=== PATIENT | male | born 1965 | race Hispanic/Latino ===

== ENCOUNTER 2019-02-28 10:24 | Day surgery (SDC) | payer MEDICARE, MEDICAID ==
[2019-02-25 08:27] VITALS: BMI 37.8
--- NOTE | 2019-02-28 19:45 | MRI ---
MRI LUMBAR SPINE WITHOUT AND WITHCONTRAST: Date: 02-28-19 History: Back pain with numbness in the left inguinal region extending into the left lower extremity, left lower extremity radiculopathy. Comparison: None. Technique: Multiplanar, multisequence MRI images were obtained of the lumbar spine with and without c ontrast. FINDINGS: On the basis of five lumbar type vertebral bodies, the conus medullaris terminates at the L1 level. The sagittal STIR imaging demonstrates no focal area of osseous marrow edema. There is anterolisthesis of L4 on L5 measuring approximately 4-5 mm. T12-L1: There is mild bilateral facet hypertrophy. No significant central canal stenosis or neural fo raminal stenosis. L1-2: Mild bilateral facet hypertrophy. Intervertebral disc height and signal intensity appears withi n normal limits with no significant central canal or neural foraminal stenosis. L2-3: Mild bilateral facet hypertrophy. There is a small left foraminal disc protrusion. There is no significant central canal or neural foraminal stenosis. L3-4: Mild bilateral facet hypertrophy. Intervertebral disc height and signal intensity appears withi n normal limits with no significant central canal or neural foraminal stenosis. L4-5: There is disc space narrowing, disc desiccation and degenerative endplate change with disc bulg e. There is prominent bilateral facet hypertrophy. There is severe bilateral neural foraminal stenosi s and there is moderate central canal stenosis. L5-S1: There is disc space narrowing, disc desiccation, and degenerative endplate change. There is no central canal stenosis. There is mild bilateral facet hypertrophy. There is moderate bilateral neura l foraminal stenosis, left greater than right. The visualized retroperitoneal structures appear grossly unremarkable. There is post-surgical architectural distortion of the subcutaneous adipose air posteriorly within th e lumbar spine, particularly at the L4-5 level. The patient appears status post laminectomy at L4-5/L 5-S1. The post contrast imaging demonstrates no abnormal enhancement involving the content of the thecal sa c. There is no abnormal enhancement involving the osseous structures or intervertebral discs. IMPRESSION: Post-operative and degenerative change of the lumbar spine as detailed above. Most significant findin gs are bilateral neural foraminal stenosis at L4-5 and L5-S1, as well as significant central canal st enosis at the L4-5 level. POS: GERI
== END 2019-02-28 15:15 | disposition home or self-care (01) ==
LOC: SDC/OP 10:24
PROVIDERS: ATTEND Neurological Surgery
DX: M48.061 Spinal stenosis, lumbar region without neurogenic claudication (principal); M48.07 Spinal stenosis, lumbosacral region; M54.16 Radiculopathy, lumbar region; M54.17 Radiculopathy, lumbosacral region; M89.38 Hypertrophy of bone, other site; Z79.84 Long term (current) use of oral hypoglycemic drugs; Z79.1 Long term (current) use of non-steroidal anti-inflammatories (NSAID); Z79.899 Other long term (current) drug therapy; Z88.5 Allergy status to narcotic agent; Z88.6 Allergy status to analgesic agent
CPT/HCPCS: 72158

== ENCOUNTER 2019-04-06 09:08 | Day surgery (SDC) | payer MEDICARE, MEDICAID ==
[2019-04-05 11:26] VITALS: BMI 38.7
--- NOTE | 2019-04-05 16:01 | HP ---
HISTORY OF PRESENT ILLNESS: Mr. Tamayo is a 53-year-old man, presenting for rather distressing complaint of severe left lower extremity pain that fits in the L5 pattern. This onset after a laminectomy was performed in [place] in 2008, which then became infected and had to be washed out. After washout, this pain started and has not . He reports numbness and dysesthesias as well as weakness, which has prompted him to start using a cane to prevent fall. He also reports classic carpal tunnel syndrome of the left hand, which has been present over the last year. An MRI from [place] reveals severe bilateral recess stenosis at L4-5 on the left that would fit his symptoms well. He has a prior history of dorsal column stimulator that was placed, but then also removed. PAST MEDICAL HISTORY: Significant for hyperlipidemia, anxiety, hypertension, asthma, and seasonal allergies. CURRENT MEDICATIONS: 1. Mirtazapine. 2. Metformin. 3. Meloxicam. 4. Lisinopril. 5. Fluticasone. 6. Duloxetine. 7. Cyclobenzaprine. 8. Buspirone. 9. Alprazolam. 10. Albuterol. 11. Serafina. 12. Pravastatin. 13. Pregabalin. 14. Propranolol. ALLERGIES: NO KNOWN DRUG ALLERGIES. PAST SURGICAL HISTORY: Unspecified other than lumbar back surgery x2. PHYSICAL EXAMINATION: GENERAL: The patient is alert and oriented x3. EXTREMITIES: Gait is profoundly antalgic. Lower extremity exam is limited in my ability to assess because of his degree of pain. He also has paresthesias and numbness to the left hand that would fit carpal tunnel quite well. ASSESSMENT: Left hand carpal tunnel syndrome and lumbar radiculopathy. PLAN: Dr. Mora met with the patient, reviewed imaging, and advocated for a left L4-5 decompression as well as a left carpal tunnel release. He explained to the patient the risks, benefits, and alternatives to the procedure. The patient expressed understanding and elected to move forward with surgery as discussed. I do believe the patient is mentally competent and capable of making medical decisions for himself. We will move forward with surgery as planned. Job ID: [id number]
[2019-04-06] MEDS ORDERED: Lidocaine 2% w/Epinephrine 1:200K 20 ML VIAL ONE (09:40)
[2019-04-06] MEDS ORDERED: Thrombin 5000 UNITS/5 ML VIAL ONE (09:40)
[2019-04-06] MEDS ORDERED: Bupivacaine PF 0.5% 30 ML VIAL ONE (09:40)
[2019-04-06] MEDS ORDERED: Lidocaine 1% w/Epinephrine 1:100K 20 ML VIAL ONE (09:40)
[2019-04-06] MEDS ORDERED: Fentanyl 100 MCG/2 ML VIAL ONE ×4 (10:03→13:09)
[2019-04-06] MEDS ORDERED: ePHEDrine/0.9% NaCl/PF SYRINGE 50 mg/10 ml ONE (10:28)
[2019-04-06] MEDS ORDERED: Calcium Chloride 1 GM/10 ML Abboject SYRINGE ONE (10:28)
[2019-04-06] MEDS ORDERED: Dexamethasone 20 MG/5 ML VIAL ONE (10:28)
[2019-04-06] MEDS ORDERED: Rocuronium Bromide 10 MG/ML (10ML VIAL) ONE (10:28)
[2019-04-06] MEDS ORDERED: Glycopyrrolate 0.2 MG/ML 5 ML SYRINGE ONE (10:28)
[2019-04-06] MEDS ORDERED: Ondansetron PF 4 MG/2 ML Vial ONE (10:28)
[2019-04-06] MEDS ORDERED: PROPOFOL 200 MG/20 ML VIAL ONE (10:28)
[2019-04-06] MEDS ORDERED: PHENYLEPHRINE-NS 100 MCG/ML 10 ML SYRINGE ONE (10:28)
[2019-04-06] MEDS ORDERED: HYDROcodone/Acetaminophen 5/325 mg Tablet ONE (13:51)
[2019-04-06] MEDS ORDERED: Tamsulosin HCl 0.4 MG CAP ONE (14:46)
--- NOTE | 2019-04-07 12:56 | OP ---
DATE OF PROCEDURE: 04/06/2019 [employer]: Daniel Monteiro PA-C INDICATION: Pain. DIAGNOSES: 1. Left carpal tunnel syndrome. 2. Left L5 radiculopathy in the setting of left L4-L5 lateral recess stenosis. PROCEDURES PERFORMED: 1. Left carpal tunnel release. 2. Left L4-L5 decompression. ANESTHESIA: General. DESCRIPTION OF PROCEDURE: The patient was brought into the operating room and placed under general anesthesia. He was flipped from a supine to prone position. The L4-L5 segment was prepped and draped and a linear incision was planned. After an appropriate perioperative pause, the L4-L5 incision was created. The soft tissues were swept left of midline. A self-retaining retractor was placed in the wound for optimal exposure. After confirming the appropriate level with C-arm fluoroscopy, high-speed cutting drill bit as well as 2, 3, and 4 mm Kerrisons were used to perform a laminectomy along the inferior aspect of L4 and the superior aspect of L5. The laminectomy was extended laterally to decompress the lateral recess. After decompressing the L4-L5 segment, the wound was irrigated. Hemostasis was maintained throughout. The wound was then closed in anatomic layers and a pressure dressing was applied. There were no known procedural complications. The patient was then carefully flipped back to supine position and the left hand prepped and draped up to the level of the axilla. A linear incision was planned along the crease of the wrist in-line with the long axis of the 4th digit. This area was infiltrated with analgesic. After an appropriate pause, the incision was created. A self-retaining retractor was placed. The underlying carpal tunnel ligament was identified and incised. The incision was extended in both proximal and distal directions until the carpal tunnel elements were decompressed. The wound was irrigated. Hemostasis was maintained throughout. A single layer of external sutures was placed and a pressure dressing was applied. There were no known procedural complications. Job ID: [id number]
== END 2019-04-06 15:05 | disposition home or self-care (01) ==
LOC: SDC 09:08
PROVIDERS: ATTEND Neurological Surgery
PROC: 01N50ZZ Release Median Nerve, Open Approach (ICD-10-PCS; principal; 2019-04-06)
PROC: 01NB0ZZ Release Lumbar Nerve, Open Approach (ICD-10-PCS; 2019-04-06)
DX: M48.061 Spinal stenosis, lumbar region without neurogenic claudication (principal); M54.16 Radiculopathy, lumbar region; G56.02 Carpal tunnel syndrome, left upper limb; I10 Essential (primary) hypertension; E78.5 Hyperlipidemia, unspecified; F41.9 Anxiety disorder, unspecified; J45.909 Unspecified asthma, uncomplicated; Z79.1 Long term (current) use of non-steroidal anti-inflammatories (NSAID); Z79.84 Long term (current) use of oral hypoglycemic drugs; Z79.899 Other long term (current) drug therapy; Z88.5 Allergy status to narcotic agent; Z88.6 Allergy status to analgesic agent
CPT/HCPCS: 36416; 76000; J0690; J1100; J2405; J2704; J3010; S0020